=== PATIENT | female | born 1935 | race Caucasian/White ===

== ENCOUNTER 2017-05-07 05:00 | Inpatient (IN) | payer OTHER ==
[~2017-05-07] VITALS: Ht 157.5 cm; Wt 59.7 kg
[~2017-05-07 05:00] MED LIST: COUMADIN
[2017-05-07] MEDS ORDERED: COLACE100 M1 PO (10:38)
[2017-05-07] MEDS ORDERED: DILAUDID2 M1 PO (10:38)
[2017-05-07] MEDS ORDERED: COUMADIN2.5 M1 PO (10:38)
[2017-05-07] MEDS ORDERED: ASPIRIN EC325 M2 PO (10:38)
[2017-05-07] MEDS ORDERED: MIRALAX17 G1 PO (10:38)
--- NOTE | 2017-05-07 10:42 | Patient Discharge Instructions ---
Discharge Instructions General Discharge Information You were seen/treated for: Left hip pain related to unilateral primary osteoarthritis You had these procedures: Left total hip replacment Watch for these problems: Increasing pain despite the use of pain medication. Increasing redness, warmth, swelling. Drainage of any type from incision. Inability to bear weight on operative leg. Persistent nausea and vomitting. Fever greater than 101.5 degrees. Do not soak the wound: Yes No bath, but you may shower: Yes Other wound care: Keep wound clean and dry. Your dressing will be changed on the second day following your surgery by nursing. Daily dry dressing changes recommend thereafter. No ointments or lotions of any type on or near incision at any time. No exceptions. Special Instructions: Aspirin: You are taking aspirin to help prevent the development of blood clots. You will be taking it once a day. Please take this as directed for one weeks. Please take with food to help protect your stomach. Constipation: Pain medications can be very constipating. You have been given a prescription for colace and miralax. Please take this as directed. In the event that you run out of these medications, they are available over the counter. You may discontinue these medications if you develop loose stool or diarrhea. If you are unable to move your bowels for several days, or if you have not passed any gas, please contact your doctor. Coumadin: You are taking coumadin in order to help protect you from developing blood clots. Another name for this medication is Warfarin. The dose of this medication is based on bloodwork called INR and therefore it may change daily. Your INR will be checked at a minimum of 2 times per week, and the results will be given to Dr. Stephens. He will give you instructions regarding how much coumadin you are to be taking each day. If you are not sure of your daily dose, please contact his office for clarification or instructions as needed. Diet Continue normal diet: Yes Recommended Diet: Regular Activity Full Activity/No Limits: No Activity Self Limited: Yes Pounds, do NOT lift more than: 10 Activity Limited to: Weight bear as tolerated Acute Coronary Syndrome Inclusion Criteria At AL or during hospital stay patient has or had the following: ACS DIAGNOSIS No Discharge Core Measures Meds if any: Prescribed or Continued at Discharge Meds if any: NOT Prescribed or Continued at Discharge Congestive Heart Failure Inclusion Criteria At AL or during hospital stay patient has or had the following: CHF DIAGNOSIS No Discharge Core Measures Meds if any: Prescribed or Continued at Discharge Meds if any: NOT Prescribed or Continued at Discharge Cerebrovascular accident Inclusion Criteria At DC or during hospital stay patient has or had the following: CVA/TIA Diagnosis No Discharge Core Measures Meds if any: Prescribed or Continued at Discharge Meds if any: NOT Prescribed or Continued at Discharge Venous thromboembolism Inclusion Criteria VTE Diagnosis No VTE Type NONE VTE Confirmed by (Test) NONE Discharge Core Measures - Per Current guidelines, there needs to be overlap - treatment for the first 5 days of Warfarin therapy. - If discharged on Warfarin prior to 5 days of - overlap therapy, the patient will need to be - assessed for post discharge needs including - *Post discharge parental anticoagulation - *Warfarin and/or parental anticoagulation education - *Follow up date to check INR post discharge At least 5 days overlap therapy as Inpatient Yes Meds if any: Prescribed or Continued at Discharge Note: Overlap Therapy is Warfarin and Anticoagulant Meds if any: NOT Prescribed or Continued at Discharge
--- NOTE | 2017-05-07 10:42 | Admission Core Measures ---
Admission Meds I reviewed the following Meds: Current Medications Sig/Alex Start time Last Medication Dose Stop Time Status Admin Acetaminophen 975 MG ONCE 05/07 0000 NR (Tylenol) 05/07 2359 Cefazolin Sodium 2,000 MG ONCE 05/07 0000 NR (Kefzol-Ancef Inj) 05/07 2359 Oxycodone HCl 10 MG ONCE 05/07 0000 NR (Roxicodone) 05/07 2359 Acute Coronary Syndrome Inclusion Criteria ACS Diagnosis No Inpatient Core Measures LDL Reminder: If No, please order W/I first 24hr of stay Congestive Heart Failure Inclusion Criteria CHF Diagnosis No Cerebrovascular accident Inclusion Criteria CVA/TIA Diagnosis No Inpatient Core Measures Bedside Swallow Eval Reminder: If BSE failed, place ST order Antithrombotic Reminder: Order Antithrombotic Medication by end of day 2 Antithrombotic Reminder: Document Reason Antithrombotic Not ordered by end of day 2 AFIB/Flutter Reminder: If Present, add to problem list AFIB/Flutter Reminder: Order Anticoag Medication for pts with AFIB/Flutter Atherosclerosis Reminder: If Present, add to problem list LDL Reminder: If No, please order W/I first 24hr of stay PT Order Reminder: If No, please order Venous thromboembolism Inpatient Core Measures VTE Risk Factors: Age > 40, Previous VTE, Surgery No [facility] VTE prophylaxis d/t No contraindications No VTE Pharm Prophylaxis d/t No contraindications Inclusion Criteria - Per Current guidelines, there needs to be overlap - treatment for the first 5 days of Warfarin therapy. - Parenteral Anticoagulation (IV or SC) needs to be - given along with Warfarin therapy. VTE Diagnosis No VTE Type NONE VTE Confirmed by (Test) NONE Problem List As ranked by this Provider includes Assessment & Plan 1. Unilateral primary osteoarthritis, left hip HOME MEDS Home Med List Aspirin (Ecotrin*) 325 MG TABLET.DR 1 TAB PO DAILY ANTICOAGULATION Docusate Sodium (Colace) 100 MG CAPSULE 1 CAP PO BID CONSITPATION Hydromorphone HCl (Dilaudid) 2 MG TABLET 1-2 TAB PO Q4-6 PRN PAIN Polyethylene Glycol 3350 (Miralax) 17 GRAM POWD.PACK 1 PAC PO DAILY CONSTIPATION Warfarin Sodium (Coumadin) 2.5 MG TABLET 1 TAB PO DAILY ANTICOAGULATION
--- NOTE | 2017-05-07 10:47 | Surgical Discharge Summary ---
Visit Information Visit Dates Admission Date: 05/07/17 Discharge Date: 05/08/17 History of Present Illness Chief Complaint: Left hip pain related to unilateral primary osteoarthritis Medical History Isolation History: Standard Surgical History Pertinent Surgical History: non-contributory Review of Systems: See H&P Hospital Course Course Attending Physician: RM TANNER MD Primary Care Physician: ALEXEY EGAN,[facility] Course: Patient was admitted to the hospital on 05/07/2017 for an elective total joint replacement. The procedure was tolerated well and the patient was transferred to a general surgical floor. There, the patient's diet was advanced and tolerated, the patient voided spontaneously, and was evaluated and treated by physical therapy. At the time of hospital discharge, vital signs were stable and within normal limits, neurovascular status was intact, and pain was controlled with the use of oral pain medication. Allergies: Coded Allergies: No Known Allergies (05/03/17) Disposition Summary Disposition Principal Diagnosis: Left hip unilateral primary osteoarthritis Additional Diagnosis: None Discharge Disposition: home health services Discharge Instructions General Discharge Information Code Status: Full Code Patient's Diet: Regular, advance as tolerated Patient's Activity: WBAT Follow-Up Instructions/Appts: Follow up with Dr. Tanner in 6 weeks from date of surgery. Please call his office to arrange and or confirm this appointment. Medications at Discharge Discharge Medications: Stop taking the following medications: [COUMADIN] DAILY Start taking the following new medications: Aspirin (Ecotrin*) 325 MG TABLET. 1 Tablet ORAL DAILY Qty = 6 No Refills Instructions: DISCONTINUE AFTER ONE WEEK Comments: Last Taken: 05/08/17 Time: 0830 Warfarin Sodium (Coumadin) 2.5 MG TABLET 1 Tablet ORAL DAILY Qty = 30 No Refills Instructions: DOSE SUBJECT TO CHANGE DAILY PER INR. AWAIT INSTRUCTIONS PRIOR TO TAKING. Comments: Last Taken: 05/07/17 Time: 1630PM Hydromorphone HCl (Dilaudid) 2 MG TABLET 1-2 Tablet ORAL EVERY 4-6 HOURS as needed for PAIN Qty = 36 No Refills Comments: Last Taken: 05/08/17 Time: 0830AM Docusate Sodium (Colace) 100 MG CAPSULE 1 Capsule ORAL TWICE DAILY Qty = 14 No Refills Instructions: DISCONTINUE USE IF YOU DEVELOP LOOSE STOOL OR DIARRHEA Comments: Last Taken: 05/08/17 Time: 0830AM Polyethylene Glycol 3350 (Miralax) 17 GRAM POWD.PACK 1 Packet ORAL DAILY Qty = 7 No Refills Instructions: dissolve in water, DISCONTINUE USE IF YOU DEVELOP LOOSE STOOL OR DIARRHEA Comments: Last Taken: 05/08/17 Time: 0830AM
--- NOTE | 2017-05-07 11:41 | RADIOLOGY REPORT ---
EXAMINATION: XR HIP, LEFT CLINICAL INFORMATION: Status post left hip replacement COMPARISON: None TECHNIQUE: Two views of the left hip. FINDINGS: The total hip arthroplasty components are in the usual position and alignment without evidence of loosening or fracture. IMPRESSION: Standard postoperative appearance of the left total hip arthroplasty.
[2017-05-07 12:13] VITALS: BP 154/68
--- NOTE | 2017-05-07 13:04 | PN- Orthopedic ---
Subjective Subjective: The patient was seen this afternoon postoperatively. She reports her pain is under adequate control and has no other complaints the current time. She is eager to work with physical therapy and possibly go home tomorrow morning. Objective Vital Signs and I&Os Vital signs: Blood pressure 142/60, pulse 65, temperature 97.6, O2 saturation 96 % on room air I's and O's: 1450 ML's in of lactated Ringer's/patient is due to void/EBL less than 100 Physical Exam: Gen.: Alert and in no obvious distress Skin: Warm and dry Cardiac: S1-S2 regular Pulmonary: Bilateral breath sounds are equal good exchange Extremities: Bilateral lower extremities are warm without calf tenderness or significant edema. Gross motor and sensory are intact. Left hip surgical dressing is clean, dry, and intact. Assessment/Plan Assessment/Plan Assessment: 81-year-old female status post left total hip arthroplasty. Postoperative the patient is progressing as expected and her pain is under adequate control. Plan: Out of bed with physical therapy patient is weightbearing as tolerated Continue current pain regiment Resume home medications Light IV hydration and monitor for postoperative void Advance diet as tolerated GI and DVT prophylaxis start aspirin/Coumadin bridge first dose tonight Follow-up morning laboratory studies 2 doses of postoperative prophylactic antibiotics Core Measures/Miscellaneous Venous Thromboembolism VTE Risk Factors: Age > 40, Previous VTE, Surgery VTE Contraindications: No Contraindications VTE Diagnosis: No VTE Type: NONE VTE Confirmed by (Test): NONE Beta Champ Is Beta Champ a Home Med? No Antibiotics Is Patient on Antibiotics? Yes If Yes: prophylaxis
--- NOTE | 2017-05-07 16:30 | Operative Report ---
Operative/Inv Procedure Report Surgery Date: 05/07/17 Name of Procedure: Left total hip replacement Pre-Operative Diagnosis: Primary left hip DJD Post-Operative Diagnosis: Same Estimated Blood Loss: 250 Surgeon/Kiln Loader: FLORES EGAN,RM Mejia Anesthesia: block Operative/Procedure Note Note: Description of Procedure: The patient was taken to the operating room and positively identified. After induction of spinal anesthesia and administration of appropriate pre-operative antibiotics, the patient was positioned supine on the operating room table and all bony prominences were well padded. After performing a surgical timeout, the left lower extremity was prepped and draped in the usual sterile fashion. A direct anterior approach was made to the left hip. The incision was carried sharply through superficial soft tissues to the level of the fascia. Meticulous hemostasis was maintained with Bovie electocautery. The fascia over the tensor fascia raymundo muscle was opened sharply and the interval between the TFL and the sartorius was entered bluntly taking care to stay lateral to the lateral femoral cutaneous nerve. Retractors were placed around the femoral neck and the pericapsular fat was identified. The ascending branches of the lateral femoral circumflex vessels were identified and carefully coagulated. The pericapsular fat and anterior capsule were then resected. A napkin ring osteotomy was performed and the femoral head was removed without difficulty. Attention was then turned to the acetabulum. After appropriate placement of retractors, the acetabulum was exposed. Soft tissue was cleaned from the acetabular margin and notch. Overhanging osteophytes were removed and the teardrop was exposed. The acetabulum was then sequentially reamed to accept a 54 mm Westwood Tritanium hemispherical solid back shell. This was impacted into place in the appropriate position and fitted with a 36 mm Trident X3 zero degree polyethylene insert. Attention was then turned to the femur. After performing the appropriate ligament releases, the proximal femur was exposed. It was then sequentially broached to accept a size #2 Westwood accolade 2 stem. This was trialed for leg length and stability. The trial component was removed and the final component was impacted into place. The trunnion was carefully cleaned and fit with a 36 mm, - 2.5 Biolox delta ceramic femoral head. The hip was reduced and put through a full range of motion and found to be stable. The articular space was then irrigated with sterile saline. The periarticular soft tissues were infilitrated with Marcaine. The fascial layer was closed with interrupted #1 vicryl suture and the skin was re-approximated with interrupted 2 -0 vicryl. The skin was closed with a running 3-0 V-Lock suture. Steri-strips and a sterile dressing were applied. The patient was awakened and taken to the recovery room in satisfactory condition.
[2017-05-07 16:52] VITALS: BP 130/60
--- NOTE | 2017-05-07 17:15 | NUR ---
1213 PATIENT ARRIVED TO THE FLOOR, A+O X3, ON RA, NO S/O DISTRESS, VSS, STABLE. DENIES PAIN. AMBULATED WITH PHYSICAL THERAPY TO BED FROM THE STRETCHER, ORIENTED TO THE ROOM, BED LOW, LOCKED, CALL LIGHT IN REACH.
--- NOTE | 2017-05-07 18:36 | NUR ---
NUSING NOTE: PT VOMITED 500ML OF EMISIS. MARY RODRIGUEZ PAGED. ZOFRAN GIVEN ORDERED WITH GOOD RESULTS. FAMILY REMAINS AT BEDSIDE. WILL CONTINUE TO MONITOR.
[2017-05-07 22:06] VITALS: BP 148/70
[2017-05-08 01:03] VITALS: BP 114/76
[2017-05-08 05:11] VITALS: BP 114/74
[2017-05-08 07:50] LABS: ABSOLUTE BASOPHIL COUNT 0 /CUMM (0.0-0.2); ABSOLUTE EOSINOPHIL COUNT 0 /CUMM (0.0-0.7); ABSOLUTE GRANULOCYTE CT 6.7 /CUMM (1.4-6.5); ABSOLUTE MONOCYTE COUNT 0.8 /CUMM (0.10-0.60); BASOPHIL % 0.3 % (0.0-2.0); EOSINOPHIL % 0.3 % (0-5); GRANULOCYTE % 77.7 % (42.2-75.2); HEMATOCRIT 31.9 % (37-47); MEAN CORPUSCULAR HGB 31.2 PG (27.0-31.0); MEAN CORPUSCULAR HGB CONC 33.6 G/DL (33.0-37.0); MEAN CORPUSCULAR VOLUME 92.8 FL (81.0-99.0); MEAN PLATELET VOLUME 8.1 FL (7.4-10.4); PLATELET COUNT 189 /CUMM (130-400); RBC DISTRIBUTION WIDTH 14.2 % (11.5-14.5); RED BLOOD CELL CT 3.44 /CUMM (4.20-5.40); WHITE BLOOD CELL COUNT 8.6 /CUMM (4.8-10.8)
[2017-05-08 08:38] LABS: PT 11.1 SEC (9.4-12.5)
--- NOTE | 2017-05-08 08:42 | PN- Orthopedic ---
Subjective Subjective: No acute overnight events reported. Patient states that she is having pain with palpation on anterior surface of femur distal to incision, but otherwise pain is tolerable. Ambulated yesterday, has yet to attempt stairs today. Denies chest pain, shortness of breath and difficulty breathing. Denies nausea and vomitting. Objective Vital Signs and I&Os Vital Signs Date Time Temp Pulse Resp B/P B/P Pulse O2 O2 Flow FiO2 Mean Ox Delivery Rate 05/08 0511 98.4 58 18 114/74 96 Room Air 05/08 0103 97.3 86 20 114/76 96 Room Air 05/07 2206 98.6 68 19 148/70 94 Room Air 05/07 1652 98.1 50 19 130/60 99 Room Air 05/07 1440 Room Air 05/07 1439 97 Room Air 05/07 1213 97.9 64 18 154/68 96 Room Air Room Air Intake & Output 05/08 1600 05/08 0800 05/08 0000 05/07 1600 05/07 0800 05/07 0000 Intake Total 720 1145 Output Total 450 1250 Balance 270 -105 Intake, IV 600 225 Intake, Oral 120 920 Output, 650 Emesis Output, Urine 450 600 Patient 132 lb Weight Weight Reported by Patient Measurement Method Physical Exam: General: Alert and oriented x3, no acute distress Cardiac: RRR, s1s2 Pulmonary: C T A bilaterally Abdomen: Non-tender, non-distended Extremties: Moves all extremities, distal sensation intact. Motor 5/5 in plantar and dorsi flexion. Skin warm and well perfused. DP pulses palpable bilaterally, bilateral calves soft and non-tender Surgical site: Left hip, dressing dry and intact, thigh compartment soft. Assessment/Plan Assessment/Plan This is a 81 year old female, POD 1, s/p left THR. PMH significant for hx of dvt, is on coumadin. -ASA 325 to be taken daily for one week while bridging coumadin -Dose coumadin daily per INR, target INR 2-3 -ALPS in house, TEDS at discharge for DVT ppx -Early ambulation encouraged -Pain: po dilaudid as needed -Diet: Regular, advance as tolerated -Activity: OOB with PT, stairs -Plan: Consider dc to home today pending pt clearance Core Measures/Miscellaneous Venous Thromboembolism VTE Risk Factors: Age > 40, Previous VTE, Surgery VTE Contraindications: No Contraindications VTE Diagnosis: No VTE Type: NONE VTE Confirmed by (Test): NONE Beta Champ Is Beta Champ a Home Med? No Antibiotics Is Patient on Antibiotics? Yes If Yes: prophylaxis
== END 2017-05-08 10:21 | disposition home health service (06) | DRG 470 ==
LOC: SDA 05:00 → ENRESERV 10:58 → ENTRNSPT 11:48 → EDTRNSPTTYP 12:04 → EDTRNSPT 12:04 → 2NB 12:28 → CMPTRNSPT 12:31 → ENPENDDIS 05-08 08:53 → 2NB 05-08 10:21
PROVIDERS: Nurse Practitioner; ADMIT Orthopaedic Surgery
PROC: 0SRB04A Replacement of Left Hip Joint with Ceramic on Polyethylene Synthetic Substitute, Uncemented, Open Approach (ICD-10-PCS; principal; 2017-05-07)
DX: M16.12 Unilateral primary osteoarthritis, left hip (principal); I73.9 Peripheral vascular disease, unspecified; Z86.718 Personal history of other venous thrombosis and embolism; Z87.891 Personal history of nicotine dependence
CPT/HCPCS: 2NBSP; 36415; 73502-LT; 82436; 88304; 97110-GO; 97116-GO; 97161-GP; 97530-GO; J0131; J0690; J0735; J1885; J2405; J2550; J7042